=== PATIENT | male | born 1935 | race African-American/Black ===

== ENCOUNTER 2017-01-04 20:51 | Inpatient (IN) | payer OTHER, MEDICARE, BC ==
[2017-01-04] VITALS (7 sets, daily range): BP systolic 162–190; BP diastolic 75–95; PULSE 106–110; RESP 18–25; TEMP 97.8–98.6; O2SAT 95–100
[~2017-01-04] VITALS: Ht 172.7 cm; Wt 61.8 kg
[~2017-01-04 20:51] MED LIST: AMLO5TAB22 PO; BACL10TA PO; CARD240C6 PO; COLC1TAB15 PO; FLUO10TA PO; ISOS10 PO; PROT40TA PO; WARF3TAB PO
[2017-01-04] MEDS ORDERED: SODIUM CHLORIDE 0.9% FLUSH 10 ML FLUSH IVF PRN (21:00)
[2017-01-04] MEDS ORDERED: METO25TA3 PO (21:26)
[2017-01-04] MEDS ORDERED: COLC1TAB15 PO (21:26)
[2017-01-04] MEDS ORDERED: WARF-58 PO (21:26)
[2017-01-04] MEDS ORDERED: LOSA50TA PO (21:26)
[2017-01-04] MEDS ORDERED: CARD240C6 PO (21:26)
[2017-01-04] MEDS ORDERED: VITA10003 PO (21:26)
[2017-01-04] MEDS ORDERED: CALC1CAP PO (21:26)
[2017-01-04] MEDS ORDERED: DONE5TAB7 PO (21:26)
[2017-01-04 21:35] LABS: AUTOMATED NEUTROPHIL # 8.7 TH/MM3 (1.8-7.7); BASOPHIL # 0.1 TH/MM3 (0-0.2); EOSINOPHIL % 0.2 % (0.0-4.0); HEMATOCRIT 34.7 % (39.0-51.0); LYMPH % 5.5 % (9.0-44.0); LYMPHOCYTE # 0.6 TH/MM3 (1.0-4.8); MEAN CELL VOLUME 76.8 FL (80.0-100.0); MEAN CORPUSCULAR HEMOGLOBIN 24.1 PG (27.0-34.0); MEAN CORPUSCULAR HGB CONC 31.4 % (32.0-36.0); MONO % 11.2 % (0.0-8.0); NEUT % 82.1 % (16.0-70.0); PLATELET COUNT 151 TH/MM3 (150-450); RED BLOOD COUNT 4.52 MIL/MM3 (4.50-5.90); RED CELL DISTRIBUTION WIDTH 20.6 % (11.6-17.2); WHITE BLOOD COUNT 10.6 TH/MM3 (4.0-11.0)
[2017-01-04 21:37] LABS: HEMO FLAGS AUTO DIFF
[2017-01-04 21:39] LABS: INTERNATIONAL NORMALIZED RATIO 1.3 RATIO; PROTHROMBIN TIME - PATIENT 14.2 SEC (9.8-11.6)
[2017-01-04 21:42] LABS: BICARBONATE 32.2 MEQ/L (21.0-32.0); POTASSIUM 3.6 MEQ/L (3.5-5.1)
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
[2017-01-04 22:02] LABS: KERATOCYTES 1+ (NORMAL); OVALOCYTES 1+ (NORMAL)
[2017-01-04 22:03] LABS: PLATELET ESTIMATE SMEAR LOW (NORMAL); PLATELET MORPHOLOGY ENLARGED (NORMAL); SCAN/DIFF AUTO DIFF CONFIRMED
[2017-01-04] MEDS ORDERED: MORPHINE SULFATE 4 MG/ML INJ IV PUSH ONE (22:15)
[2017-01-04] MEDS ORDERED: SODIUM CHLOR 0.9% 1000 ML INJ 1,000 ML IV SCH (22:23)
[2017-01-04] MEDS ORDERED: ONDANSETRON HCL 4 MG/2 ML VIAL IV PRN (22:30)
[2017-01-04] MEDS: DOCUSATE SODIUM 100 MG/10 ML UDC PO SCH (22:30)
[2017-01-04] MEDS ORDERED: MORPHINE SULFATE 4 MG/ML INJ IV PRN (22:30)
[2017-01-04] MEDS ORDERED: CHLORHEXIDINE GLUCONATE 2 % 1 PACK (2 CLOTHS) TOP PRN (22:30)
[2017-01-04] MEDS ORDERED: MISCELLANEOUS NURSING INFORMATION XX SCH (22:30)
[2017-01-04] MEDS ORDERED: PANTOPRAZOLE SODIUM 40 MG VIAL IVP SCH (22:30)
[2017-01-04] MEDS: DOCUSATE SODIUM 100 MG CAP PO SCH (22:30)
[2017-01-04] MEDS: ENALAPRILAT 1.25 MG/ML VIAL IV PRN (23:17)
[2017-01-05] VITALS (15 sets, daily range): BP systolic 138–183; BP diastolic 72–93; PULSE 84–108; RESP 15–30; TEMP 97.8–99; O2SAT 94–100
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
--- NOTE | 2017-01-05 04:23 | RADRPT ---
EXAM DATE/TIME: 01/05/2017 03:27 This report includes an Addendum and supersedes previous reports for this exam. [facility] COMPARISON: CHEST SINGLE AP, May 11, 2016, 18:45. INDICATIONS : Short of breath. MEDICAL HISTORY : Unobtainable. SURGICAL HISTORY : Unobtainable. ENCOUNTER: Subsequent ACUITY: 2 days PAIN SCORE: Non-responsive. LOCATION: Bilateral chest FINDINGS: A single view of the chest demonstrates the lungs to be symmetrically aerated without evidence of mas s, infiltrate or effusion. The heart size is mildly enlarged but stable.. Osseous structures are in tact and stable. CONCLUSION: No acute pulmonary infiltrates. Stable cardiomegaly Rigo Remy MD on January 05, 2017 at 4:20 Board Certified Radiologist. This report was verified electronically. ADDENDUM: I was asked to review this study with additional history of the patient being status post left lobect ascencion. There are postsurgical changes in the left perihilar region with multiple clips and neda. The re is volume loss in the left hemithorax with mild mediastinal shift to the left. This is unchanged i n appearance. The heart size is mildly prominent. There are no new confluent infiltrates or effusions . Hazy opacity remains at the left lung base which is unchanged from the prior study. Donny Boykin MD on January 05, 2017 at 10:49 Board Certified Radiologist. This report was verified electronically.
[2017-01-05 04:34] LABS: AUTOMATED NEUTROPHIL # 6.1 TH/MM3 (1.8-7.7); BASOPHIL % 0.4 % (0.0-2.0); EOSINOPHIL # 0.1 TH/MM3 (0-0.4); EOSINOPHIL % 1.3 % (0.0-4.0); HEMATOCRIT 34.1 % (39.0-51.0); LYMPH % 7.9 % (9.0-44.0); LYMPHOCYTE # 0.6 TH/MM3 (1.0-4.8); MEAN CELL VOLUME 77.7 FL (80.0-100.0); MEAN CORPUSCULAR HEMOGLOBIN 24.5 PG (27.0-34.0); MEAN CORPUSCULAR HGB CONC 31.6 % (32.0-36.0); MONO % 12.2 % (0.0-8.0); NEUT % 78.2 % (16.0-70.0); PLATELET COUNT 175 TH/MM3 (150-450); RED BLOOD COUNT 4.39 MIL/MM3 (4.50-5.90); RED CELL DISTRIBUTION WIDTH 21.2 % (11.6-17.2); WHITE BLOOD COUNT 7.8 TH/MM3 (4.0-11.0)
[2017-01-05] MEDS: CHLORHEXIDINE GLUCONATE 2 % 1 PACK (2 CLOTHS) TOP SCH (04:50)
[2017-01-05 04:53] LABS: HEMO FLAGS AUTO DIFF
[2017-01-05 04:55] LABS: POTASSIUM 3.9 MEQ/L (3.5-5.1)
[2017-01-05] MEDS ORDERED: CHLORHEXIDINE GLUCONATE 2 % 1 PACK (2 CLOTHS) TOP PRN (05:15)
[2017-01-05] MEDS ORDERED: MISCELLANEOUS NURSING INFORMATION XX SCH (05:15)
[2017-01-05] MEDS ORDERED: ONDANSETRON HCL 4 MG/2 ML VIAL IV PRN ×2 (05:15→10:30)
[2017-01-05] MEDS ORDERED: ACETAMINOPHEN 325 MG TAB PO PRN ×2 (05:15→10:30)
[2017-01-05] MEDS ORDERED: SENNOSIDES 8.6 MG TAB PO PRN (05:15)
[2017-01-05] MEDS ORDERED: RESP: ALBUTEROL 2.5 MG/IPRATROPIUM 0.5 MG NEB (PRN) INH (05:15)
[2017-01-05 05:32] LABS: MAGNESIUM 2.4 MG/DL (1.5-2.5)
[2017-01-05 07:29] LABS: BASOPHILS 1 % (0-2); CORRECTED NUCLEATED RBC 1 /100 WBC (0-0); EOSINOPHILS 1 % (0-4); NEUTROPHIL # MANUAL DIFF 6.3 TH/MM3 (1.8-7.7); POLYS (SEG NEUTROPHILS) 81 % (16-70); WBC DIFF SAMPLE 100
[2017-01-05 07:30] LABS: OVALOCYTES 1+ (NORMAL)
[2017-01-05 07:33] LABS: PLATELET ESTIMATE SMEAR NORMAL (NORMAL); PLATELET MORPHOLOGY NORMAL (NORMAL); SCAN/DIFF FINAL DIFF MANUAL
[2017-01-05] MEDS: LOSARTAN 50 MG TAB PO SCH (08:04)
[2017-01-05] MEDS: SODIUM CHLORIDE 0.9% FLUSH 10 ML FLUSH IV FLUSH PRN (08:04)
[2017-01-05] MEDS: METOPROLOL TARTRATE 25 MG TAB PO SCH ×2 (08:04→20:10)
[2017-01-05] MEDS: DOCUSATE SODIUM 100 MG CAP PO SCH (08:04)
[2017-01-05] MEDS: PANTOPRAZOLE SOD 40 MG DELAYED RELEASE TAB PO SCH (08:04)
[2017-01-05] MEDS: DILTIAZEM-CD 240 MG CAP ER PO SCH (08:04)
[2017-01-05] MEDS: DOCUSATE SODIUM 100 MG/10 ML UDC PO SCH (08:34)
[2017-01-05] MEDS ORDERED: DOCUSATE SODIUM 100 MG CAP PO SCH (09:00)
[2017-01-05] MEDS: POLYETHYLENE GLYCOL 17 GM PKG PO SCH (09:55)
[2017-01-05] MEDS: ACETAMINOPHEN/HYDROcodone 325 MG/5 MG TAB PO PRN ×2 (09:55→22:16)
[2017-01-05] MEDS: DOCUSATE SODIUM 50 MG/SENNA 8.6 MG TAB PO SCH ×2 (09:55→20:10)
[2017-01-05] MEDS ORDERED: SODIUM CHLOR 0.9% 1000 ML INJ 1,000 ML IV PRN ×3 (10:16)
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
[2017-01-05] MEDS ORDERED: cloNIDine HCL 0.1 MG TAB PO PRN (10:30)
[2017-01-05] MEDS ORDERED: MANNITOL 12.5 GM/50 ML VIAL IV PRN (10:30)
[2017-01-05] MEDS ORDERED: GENTAMICIN SULFATE (DIALYSIS USE ONLY) 20 MG/2 ML VIAL IV PRN (10:30)
[2017-01-05] MEDS ORDERED: diphenhydrAMINE HCL 25 MG CAP PO PRN (10:30)
[2017-01-05] MEDS ORDERED: NITROGLYCERIN 0.4 MG SL 25 TABS/BTL SL PRN (10:30)
[2017-01-05] MEDS ORDERED: HEPARIN SODIUM - IV 10,000 UNITS/10 ML VIAL PRN (10:30)
[2017-01-05] MEDS ORDERED: HEPARIN SODIUM - IV 10,000 UNITS/10 ML VIAL IVF PRN (10:30)
[2017-01-05] MEDS ORDERED: SODIUM CHLORIDE 0.9% FLUSH 10 ML FLUSH IV FLUSH PRN (10:30)
[2017-01-05] MEDS ORDERED: ALBUMIN HUMAN 25% 25 GM/100 ML BAGP IV PRN (10:30)
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
[2017-01-05] MEDS ORDERED: RESP: ALBUTEROL 2.5 MG/IPRATROPIUM 0.5 MG NEB (PRN) NEB (11:00)
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
[2017-01-05] MEDS: GELATIN 12 MM/7 MM FOAM TOP PRN (12:28)
[2017-01-05] MEDS: CALCIUM ACETATE 667 MG CAP PO SCH ×2 (14:16→17:58)
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
--- NOTE | 2017-01-05 17:37 | EKG ---
Date Performed: 01/04/2017 Time Performed: 20:51:00 PTAGE: 81 years EKG: ATRIAL FIBRILLATION WITH RAPID VENTRICULAR RESPONSE BORDERLINE LEFT AXIS DEVIATION VOLTAGE CRITERIA FOR LVH NONSPECIFIC ST & T-WAVE ABNORMALITY Compared to prior study of 05/11/2016, atrial fib rillation with RVR has replaced Sinus rhythm . ABNORMAL ECG NO PREVIOUS TRACING DOCTOR: Ethan Mercado Interpretating Date/Time 01/05/2017 17:37:22
[2017-01-05] MEDS ORDERED: SERO200T PO (17:55)
[2017-01-05] MEDS: ENALAPRILAT 1.25 MG/ML VIAL IV PRN (18:43)
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
[2017-01-06] VITALS (10 sets, daily range): BP systolic 142–178; BP diastolic 81–91; PULSE 88–107; RESP 18–23; TEMP 97.6–99; O2SAT 91–100
[2017-01-06] MEDS ORDERED: CHLORHEXIDINE GLUCONATE 2 % 1 PACK (2 CLOTHS) TOP SCH (04:00)
[2017-01-06] MEDS: CHLORHEXIDINE GLUCONATE 2 % 1 PACK (2 CLOTHS) TOP SCH (04:00)
[2017-01-06] MEDS: ACETAMINOPHEN/HYDROcodone 325 MG/5 MG TAB PO PRN ×2 (04:30→16:14)
[2017-01-06 05:14] LABS: HEMATOCRIT 36.8 % (39.0-51.0); MEAN CELL VOLUME 77.3 FL (80.0-100.0); MEAN CORPUSCULAR HEMOGLOBIN 23.7 PG (27.0-34.0); MEAN CORPUSCULAR HGB CONC 30.7 % (32.0-36.0); PLATELET COUNT 136 TH/MM3 (150-450); RED BLOOD COUNT 4.75 MIL/MM3 (4.50-5.90); RED CELL DISTRIBUTION WIDTH 20.9 % (11.6-17.2); WHITE BLOOD COUNT 9.3 TH/MM3 (4.0-11.0)
[2017-01-06 05:16] LABS: REVIEW FLAG FINAL
[2017-01-06 05:22] LABS: INTERNATIONAL NORMALIZED RATIO 1.2 RATIO; PROTHROMBIN TIME - PATIENT 12.9 SEC (9.8-11.6)
[2017-01-06 05:30] LABS: BICARBONATE 30.9 MEQ/L (21.0-32.0); MAGNESIUM 2.2 MG/DL (1.5-2.5); POTASSIUM 4.2 MEQ/L (3.5-5.1)
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
[2017-01-06] MEDS: LOSARTAN 50 MG TAB PO SCH (10:27)
[2017-01-06] MEDS: CALCIUM ACETATE 667 MG CAP PO SCH ×3 (10:27→18:34)
[2017-01-06] MEDS: POLYETHYLENE GLYCOL 17 GM PKG PO SCH (10:27)
[2017-01-06] MEDS: DILTIAZEM-CD 240 MG CAP ER PO SCH (10:28)
[2017-01-06] MEDS: PANTOPRAZOLE SOD 40 MG DELAYED RELEASE TAB PO SCH (10:28)
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
[2017-01-06] MEDS: DONEPEZIL HCL 5 MG TAB PO SCH (10:33)
[2017-01-06] MEDS: METOPROLOL TARTRATE 25 MG TAB PO SCH ×2 (10:33→20:55)
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
[2017-01-06] MEDS: DOCUSATE SODIUM 50 MG/SENNA 8.6 MG TAB PO SCH ×2 (14:30→20:55)
[2017-01-07] VITALS (7 sets, daily range): BP systolic 121–163; BP diastolic 68–86; PULSE 70–94; RESP 18–20; TEMP 96–98.2; O2SAT 92–95
[2017-01-07] MEDS ORDERED: MILKSUS PO (07:57)
[2017-01-07] MEDS ORDERED: SENN1TAB PO (07:57)
[2017-01-07] MEDS: DILTIAZEM-CD 240 MG CAP ER PO SCH (08:44)
[2017-01-07] MEDS: CALCIUM ACETATE 667 MG CAP PO SCH ×3 (08:45→17:32)
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
[2017-01-07] MEDS: LOSARTAN 50 MG TAB PO SCH (14:07)
[2017-01-07] MEDS: DOCUSATE SODIUM 50 MG/SENNA 8.6 MG TAB PO SCH ×2 (14:07→21:20)
[2017-01-07] MEDS: DONEPEZIL HCL 5 MG TAB PO SCH (14:07)
[2017-01-07] MEDS: METOPROLOL TARTRATE 25 MG TAB PO SCH ×2 (14:07→21:20)
[2017-01-07] MEDS: POLYETHYLENE GLYCOL 17 GM PKG PO SCH (14:07)
[2017-01-07] MEDS: PANTOPRAZOLE SOD 40 MG DELAYED RELEASE TAB PO SCH (14:08)
--- NOTE | 2017-01-07 17:07 | HHI.PR ---
Subjective Remarks Pt nods yes and says "unhun" to everything I ask, when I asks him if he has pain , he nods yes, if he is nauseous, nods yes, if he ate dinner (clearly he hasn't touched any of his food) and nods yes Objective Vitals Vital Signs Date Time Temp Pulse Resp B/P Pulse Ox O2 Delivery O2 Flow Rate FiO2 01/07/17 16:33 97.0 87 18 142/68 94 01/07/17 13:00 96.0 73 18 140/79 94 01/07/17 08:22 98.2 70 18 163/73 95 01/07/17 08:00 94 01/07/17 04:00 96.3 80 20 154/74 92 01/07/17 00:00 96.5 85 18 121/81 92 01/06/17 22:54 88 01/06/17 20:00 98.2 99 18 163/83 93 01/06/17 17:45 98.2 91 22 177/88 94 I/O 01/06/17 01/06/17 01/06/17 01/07/17 01/07/17 01/07/17 07:00 15:00 23:00 07:00 15:00 23:00 Intake Total 160 ml 356 ml 0 ml 60 ml Output Total 0 ml 0 ml 3000 ml Balance 160 ml 356 ml 0 ml 60 ml -3000 ml Intake Oral 160 ml 356 ml 0 ml 60 ml IV Total 0 ml 0 ml Output Urine Total 0 ml 0 ml Hemodialysis 3000 ml # Voids 0 0 # Bowel Movements 0 0 0 0 Result Diagram: 01/06/17 0450 01/06/17 0450 Imaging Last Impressions Chest X-Ray 01/05/17 0000 Signed Impressions: Service Date/Time: December 03:27 - CONCLUSION: No acute pulmonary infiltrates. Stable cardiomegaly Rigo Remy MD ADDENDUM: I was asked to review this study with additional history of the patient being status post left lobectomy. There are postsurgical changes in the left perihilar region with multiple clips and neda. There is volume loss in the left hemithorax with mild mediastinal shift to the left. This is unchanged in appearance. The heart size is mildly prominent. There are no new confluent infiltrates or effusions. Hazy opacity remains at the left lung base which is unchanged from the prior study. Donny Boykin MD Head CT 01/04/172052 Signed Impressions: Service Date/Time: Wednesday, January 04, 2017 21:37 - CONCLUSION: 1. Small subarachnoid blood and scattered faint bilateral cerebral parenchymal contusions as above. No mass effect or midline shift. 2. Left frontal scalp contusion. 3. Fluid in the left mastoid air cells but similar findings seen last April. Macario Benjamin MD Objective Remarks GENERAL: Elderly appearing male, confused, alert to self only protecting his airway currently on 2 L nasal cannula CARDIOVASCULAR: Normal rate, irregularly irregular rhythm. RESPIRATORY: No accessory muscle use. Clear to auscultation. Breath sounds equal bilaterally. GASTROINTESTINAL: Abdomen soft, non-tender, nondistended. No guarding. MUSCULOSKELETAL: Extremities without edema. No obvious deformities. NEUROLOGICAL: Awake, confused, alert to self only. No gross focal/sensory deficits. Follows commands in all 4 extremities. A/P Assessment and Plan Neurologic: Subarachnoid hemorrhage with small parenchymal contusions Pain Bipolar disorder Left frontal scalp contusion Neurosurgery consulted- Dr. Wu-follow up recommendations, for now continue to monitor neuro exams 01/04 CT brain-small subarachnoid bleed, bilateral cerebral parenchymal contusions. No midline shift. Left frontal scalp contusion. 01/04 CT brain ([place]) subarachnoid hemorrhage of left sylvian fissure, mild sulcal subarachnoid hemorrhage within left parietal lobe 01/04 CT cervical spine ([place]) marked degenerative changes with spinal stenosis and neural for renal narrowing, appears stable. 01/04 CT lumbar ([place]) spinal stenosis with neural foraminal narrowing T9- T10 secondary to degenerative changes. patient alert to self only, confusion unsure of baseline mental status . Per records, Daughter, patient has baseline confusion at home, she feels may be Alzheimer's. Tylenol 650 mg every 6 hours , [place] when necessary for pain, discontinue morphine. Anterior mediastinal mass History of lung cancer-S/P lobectomy 01/04 CT chest([place]) stable anterior mediastinal mass 01/05 stable cardiomegaly Maintain O2 sat greater than 92%, noted O2 sat 97% on room air, nasal cannula discontinued Maintain head of bed greater than 30 Bronchodilators when necessary Cardiomegaly Atrial fibrillation Peripheral vascular disease Hypertension Continue home antihypertensive meds-Cardizem 240 CD, losartan 50 mg/day, metoprolol 25 mg twice a day, and Vasotec Maintain MAP > 65mmHg Previously on Coumadin 3 mg or A. fib on hold secondary to SAH , provided FFP and vitamin K for reversal on 01/04 Initial troponin 0.03 Multiple stents bilateral lower extremities (reported by family) End-stage renal disease Bilateral renal cysts BPH Nephrology following-continue IHD, previously on Monday schedule Left arm existing AV graft -- Strict I/Os FEN/GI: Hiatal hernia (sliding) Diverticulosis Hepatomegaly H/O Hepatitis (per medical record) Hypophosphatemia Hypocalcemia Maintain NPO except meds Continue calcium acetate (home med) Monitor BMP Zofran for nausea Bowel regimen 01/04 CT abdomen ([place]) cardiomegaly, sliding type hiatal hernia, hepatomegaly consistent with hepatocellular disease. Biliary harmatoma. Bilateral renal parenchymal cysts. Diverticula scattered. Marked prostate gland enlargement. Bladder wall thickening consistent with outflow obstructive changes. Small numerous bladder calculi. 11 mm splenic nodule, may be a harmatoma Anemia of chronic disease Monitor CBC Recent right foot 4th toe amputation Osteoarthritis-T and L-spine Consult podiatry-sutures in situ 4th digit right foot-Dr. Chirinos. Per podiatry , sutures to be removed at next visit, off-load pressure while in bed w pillow blood flow studies of right lower extremity pending. PT/OT evaluate and treat Prophylaxis: GI Prophylaxis Protonix DVT Prophylaxis -- SCDs No pharmacological prophylaxis in the setting of SAH Discharge Planning per primary team Urmila Molina MD Jan 07, 2017 17:07
[2017-01-07] MEDS: ACETAMINOPHEN/HYDROcodone 325 MG/5 MG TAB PO PRN (17:34)
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
--- NOTE | 2017-01-07 21:18 | RADRPT ---
EXAM DATE/TIME: 01/07/2017 20:53 [place] COMPARISON: No previous studies available for comparison. INDICATIONS : Right foot pain. MEDICAL HISTORY : Unobtainable. SURGICAL HISTORY : Unobtainable. ENCOUNTER: Subsequent ACUITY: 1 day PAIN SCORE: 3/10 LOCATION: Right foot. FINDINGS: No definite fractures, or dislocations are identified. No definite lytic or sclerotic lesion is seen . Slight osteopenia is seen. Chronic atherosclerotic calcifications are seen involving the visualize d arteries. CONCLUSION: Slight osteopenia. Jeanette Padron MD on January 07, 2017 at 21:15 Board Certified Radiologist. This report was verified electronically.
[2017-01-07] MEDS: MAGNESIUM HYDROXIDE SUSP 30 ML CUP PO SCH (21:21)
[2017-01-08] VITALS: BP 167/88; PULSE 83; RESP 20; TEMP 96.9; O2SAT 96
[2017-01-08 04:00] VITALS: BP 140/68; PULSE 71; RESP 20; TEMP 96.3; O2SAT 96
[2017-01-08 07:47] VITALS: BP 149/81; PULSE 89; RESP 18; TEMP 97.8; O2SAT 93
[2017-01-08 08:07] LABS: POTASSIUM 4.3 MEQ/L (3.5-5.1)
[2017-01-08] MEDS: DILTIAZEM-CD 240 MG CAP ER PO SCH (09:03)
[2017-01-08] MEDS: LACTULOSE SYRUP 20 GM/30 ML CUP PO SCH (09:03)
[2017-01-08] MEDS: POLYETHYLENE GLYCOL 17 GM PKG PO SCH (09:03)
[2017-01-08] MEDS: SODIUM CHLORIDE 0.9% FLUSH 10 ML FLUSH IV FLUSH PRN (09:03)
[2017-01-08] MEDS: DOCUSATE SODIUM 50 MG/SENNA 8.6 MG TAB PO SCH ×2 (09:03→20:32)
[2017-01-08] MEDS: METOPROLOL TARTRATE 25 MG TAB PO SCH ×2 (09:03→20:32)
[2017-01-08] MEDS: CALCIUM ACETATE 667 MG CAP PO SCH ×3 (09:03→17:55)
[2017-01-08] MEDS: LOSARTAN 50 MG TAB PO SCH (09:03)
[2017-01-08] MEDS: PANTOPRAZOLE SOD 40 MG DELAYED RELEASE TAB PO SCH (09:03)
[2017-01-08] MEDS: DONEPEZIL HCL 5 MG TAB PO SCH (09:03)
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
[2017-01-08 12:16] VITALS: BP 161/89; PULSE 80; RESP 18; TEMP 95.9; O2SAT 95
[2017-01-08] MEDS: ACETAMINOPHEN/HYDROcodone 325 MG/5 MG TAB PO PRN (12:34)
[2017-01-08] MEDS ORDERED: ACET325T PO (12:56)
--- NOTE | 2017-01-08 15:27 | HHI.PR ---
Subjective Remarks Pt says yes when asks if he has pain, he points to lower chest and belly. Pt does answer yes to many of my questions so unsure if he understands what I'm asking him discussed w RN, pt keep taking tele off. Objective Vitals Vital Signs Date Time Temp Pulse Resp B/P Pulse Ox O2 Delivery O2 Flow Rate FiO2 01/08/17 12:16 95.9 80 18 161/89 95 01/08/17 07:47 97.8 89 18 149/81 93 01/08/17 04:00 96.3 71 20 140/68 96 01/08/17 00:00 96.9 83 20 167/88 96 01/07/17 20:00 87 01/07/17 20:00 97.5 90 20 154/86 95 01/07/17 16:33 97.0 87 18 142/68 94 I/O 01/07/17 01/07/17 01/07/17 01/08/17 01/08/17 01/08/17 07:00 15:00 23:00 07:00 15:00 23:00 Intake Total 60 ml 60 ml 480 ml Output Total 3000 ml Balance 60 ml -3000 ml 60 ml 480 ml Intake Oral 60 ml 60 ml 480 ml Hemodialysis 3000 ml # Voids 0 0 2 # Bowel Movements 0 0 2 Result Diagram: 01/06/17 0450 01/08/17 0625 Imaging Last Impressions Foot X-Ray 01/07/17 0000 Signed Impressions: Service Date/Time: Saturday, January 07, 2017 20:53 - CONCLUSION: Slight osteopenia. KEligio Padron MD Chest X-Ray 01/05/17 0000 Signed Impressions: Service Date/Time: December 03:27 - CONCLUSION: No acute pulmonary infiltrates. Stable cardiomegaly Rigo Remy MD ADDENDUM: I was asked to review this study with additional history of the patient being status post left lobectomy. There are postsurgical changes in the left perihilar region with multiple clips and neda. There is volume loss in the left hemithorax with mild mediastinal shift to the left. This is unchanged in appearance. The heart size is mildly prominent. There are no new confluent infiltrates or effusions. Hazy opacity remains at the left lung base which is unchanged from the prior study. Donny Boykin MD Head CT 01/04/172052 Signed Impressions: Service Date/Time: Wednesday, January 04, 2017 21:37 - CONCLUSION: 1. Small subarachnoid blood and scattered faint bilateral cerebral parenchymal contusions as above. No mass effect or midline shift. 2. Left frontal scalp contusion. 3. Fluid in the left mastoid air cells but similar findings seen last April. Macario Benjamin MD Objective Remarks GENERAL: Elderly appearing male, confused, alert to self CARDIOVASCULAR: Normal rate, irregularly irregular rhythm. reproducible pain on the right lower chest RESPIRATORY: No accessory muscle use. Clear to auscultation. Breath sounds equal bilaterally. GASTROINTESTINAL: Abdomen soft, grimaces when I palpate the epigastric region, nondistended. No guarding. MUSCULOSKELETAL: Extremities without edema. No obvious deformities. NEUROLOGICAL: Awake, confused, alert to self only. No gross focal/sensory deficits. Follows commands in all 4 extremities. A/P Assessment and Plan Neurologic: Subarachnoid hemorrhage with small parenchymal contusions Pain Bipolar disorder Left frontal scalp contusion Neurosurgery consulted- Dr. Wu-follow up recommendations, for now continue to monitor neuro exams 01/04 CT brain-small subarachnoid bleed, bilateral cerebral parenchymal contusions. No midline shift. Left frontal scalp contusion. 01/04 CT brain ([place]) subarachnoid hemorrhage of left sylvian fissure, mild sulcal subarachnoid hemorrhage within left parietal lobe 01/04 CT cervical spine ([place]) marked degenerative changes with spinal stenosis and neural for renal narrowing, appears stable. 01/04 CT lumbar ([place]) spinal stenosis with neural foraminal narrowing T9- T10 secondary to degenerative changes. patient alert to self only, confusion unsure of baseline mental status . Per records, Daughter, patient has baseline confusion at home, she feels may be Alzheimer's. Tylenol 650 mg every 6 hours , [place] when necessary for pain, discontinue morphine. Anterior mediastinal mass History of lung cancer-S/P lobectomy 01/04 CT chest([place]) stable anterior mediastinal mass 01/05 stable cardiomegaly Maintain O2 sat greater than 92%, noted O2 sat 97% on room air, nasal cannula discontinued Maintain head of bed greater than 30 Bronchodilators when necessary Cardiomegaly Atrial fibrillation Peripheral vascular disease Hypertension Continue home antihypertensive meds-Cardizem 240 CD, losartan 50 mg/day, metoprolol 25 mg twice a day, and Vasotec Maintain MAP > 65mmHg Previously on Coumadin 3 mg or A. fib on hold secondary to SAH , provided FFP and vitamin K for reversal on 01/04 Initial troponin 0.03 Multiple stents bilateral lower extremities (reported by family). d/c TELE End-stage renal disease Bilateral renal cysts BPH Nephrology following-continue IHD, previously on Monday schedule Left arm existing AV graft -- Strict I/Os FEN/GI: Hiatal hernia (sliding) Diverticulosis Hepatomegaly H/O Hepatitis (per medical record) Hypophosphatemia Hypocalcemia Maintain NPO except meds Continue calcium acetate (home med) Monitor BMP Zofran for nausea Bowel regimen 01/04 CT abdomen ([place]) cardiomegaly, sliding type hiatal hernia, hepatomegaly consistent with hepatocellular disease. Biliary harmatoma. Bilateral renal parenchymal cysts. Diverticula scattered. Marked prostate gland enlargement. Bladder wall thickening consistent with outflow obstructive changes. Small numerous bladder calculi. 11 mm splenic nodule, may be a harmatoma Anemia of chronic disease Monitor CBC Recent right foot 4th toe amputation Osteoarthritis-T and L-spine Consult podiatry-sutures in situ 4th digit right foot-Dr. Chirinos. Per podiatry , sutures to be removed at next visit, off-load pressure while in bed w pillow blood flow studies of right lower extremity pending. PT/OT evaluate and treat Prophylaxis: GI Prophylaxis Protonix DVT Prophylaxis -- SCDs No pharmacological prophylaxis in the setting of SAH Discharge Planning per primary team Urmila Molina MD Jan 08, 2017 15:27
[2017-01-08 16:30] VITALS: BP 152/87; PULSE 77; RESP 17; TEMP 95.7; O2SAT 94
[2017-01-08 20:00] VITALS: BP 143/77; PULSE 88; RESP 18; TEMP 95.7; O2SAT 94
[2017-01-08] MEDS: MAGNESIUM HYDROXIDE SUSP 30 ML CUP PO SCH (20:32)
[2017-01-09] VITALS: BP 156/69; PULSE 67; RESP 18; TEMP 95.6; O2SAT 94
[2017-01-09 04:00] VITALS: BP 167/79; PULSE 50; RESP 18; TEMP 97.4; O2SAT 95
[2017-01-09 07:32] LABS: AUTOMATED NEUTROPHIL # 6.4 TH/MM3 (1.8-7.7); BASOPHIL % 0.3 % (0.0-2.0); EOSINOPHIL # 0.5 TH/MM3 (0-0.4); EOSINOPHIL % 4.9 % (0.0-4.0); HEMATOCRIT 37.3 % (39.0-51.0); LYMPH % 14.5 % (9.0-44.0); LYMPHOCYTE # 1.4 TH/MM3 (1.0-4.8); MEAN CELL VOLUME 76.1 FL (80.0-100.0); MEAN CORPUSCULAR HEMOGLOBIN 24.5 PG (27.0-34.0); MEAN CORPUSCULAR HGB CONC 32.2 % (32.0-36.0); MONO % 12.3 % (0.0-8.0); PLATELET COUNT 190 TH/MM3 (150-450); RED CELL DISTRIBUTION WIDTH 20.8 % (11.6-17.2); WHITE BLOOD COUNT 9.4 TH/MM3 (4.0-11.0)
[2017-01-09 07:33] LABS: HEMO FLAGS AUTO DIFF
[2017-01-09 07:37] LABS: ALKALINE PHOSPHATASE 130 U/L (45-117); ALT (GPT) 29 U/L (12-78); ANION GAP 13 MEQ/L (5-15); AST (GOT) 60 U/L (15-37); BICARBONATE 29.7 MEQ/L (21.0-32.0); CHLORIDE 91 MEQ/L (98-107); GLOMERULAR FILTRATION RATE 7 ML/MIN (>89); MAGNESIUM 3.3 MG/DL (1.5-2.5); SODIUM (NA) 134 MEQ/L (136-145); TOTAL BILIRUBIN ADULT 0.6 MG/DL (0.2-1.0)
[2017-01-09 07:38] LABS: BLOOD UREA NITROGEN 62 MG/DL (7-18)
[2017-01-09 07:42] LABS: POTASSIUM 6.6 MEQ/L (3.5-5.1)
[2017-01-09] MEDS: METOPROLOL TARTRATE 25 MG TAB PO SCH ×2 (08:00→21:34)
[2017-01-09] MEDS: LOSARTAN 50 MG TAB PO SCH (08:00)
[2017-01-09] MEDS: POLYETHYLENE GLYCOL 17 GM PKG PO SCH (08:00)
[2017-01-09] MEDS: LACTULOSE SYRUP 20 GM/30 ML CUP PO SCH (08:00)
[2017-01-09] MEDS: PANTOPRAZOLE SOD 40 MG DELAYED RELEASE TAB PO SCH (08:00)
[2017-01-09] MEDS: DOCUSATE SODIUM 50 MG/SENNA 8.6 MG TAB PO SCH ×2 (08:00→21:34)
[2017-01-09] MEDS: CALCIUM ACETATE 667 MG CAP PO SCH ×3 (08:00→18:00)
[2017-01-09] MEDS: DONEPEZIL HCL 5 MG TAB PO SCH (08:00)
[2017-01-09] MEDS: DILTIAZEM-CD 240 MG CAP ER PO SCH (08:00)
[2017-01-09 08:15] LABS: ACANTHOCYTES OCC (NORMAL); OVALOCYTES 1+ (NORMAL)
[2017-01-09 08:16] LABS: SCAN/DIFF AUTO DIFF CONFIRMED
[2017-01-09 08:27] VITALS: BP 172/81; PULSE 56; RESP 18; TEMP 96.5; O2SAT 98
[2017-01-09] MEDS ORDERED: DEXTROSE 50% IN WATER 50 ML SYRINGE IV ONE (09:00)
[2017-01-09] MEDS ORDERED: INSULIN HUMAN REGULAR 1,000 UNITS/10 ML VIAL IV PUSH ONE (09:00)
[2017-01-09] MEDS ORDERED: SODIUM BICARBONATE 8.4% INJ 50 MEQ/50 ML SYR IV PUSH ONE (09:00)
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
[2017-01-09] MEDS ORDERED: HYDR-3516 PO (11:33)
[2017-01-09 13:37] VITALS: BP 159/69; PULSE 73; RESP 20; TEMP 97.4; O2SAT 98
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
[2017-01-09 17:39] LABS: BICARBONATE 31.9 MEQ/L (21.0-32.0); POTASSIUM 4.1 MEQ/L (3.5-5.1)
[2017-01-09 20:00] VITALS: BP 160/74; PULSE 68; RESP 18; TEMP 96.7; O2SAT 96
[2017-01-09] MEDS: MAGNESIUM HYDROXIDE SUSP 30 ML CUP PO SCH (21:34)
[2017-01-10] VITALS: BP 153/72; PULSE 62; RESP 20; TEMP 97.4; O2SAT 97
[2017-01-10 04:00] VITALS: BP 171/77; PULSE 58; RESP 20; TEMP 95.8; O2SAT 94
[2017-01-10 07:37] LABS: BICARBONATE 35.3 MEQ/L (21.0-32.0); POTASSIUM 4.7 MEQ/L (3.5-5.1)
[2017-01-10 08:23] VITALS: BP 138/74; PULSE 60; RESP 20; TEMP 98.1; O2SAT 96
[2017-01-10] MEDS: ACETAMINOPHEN/HYDROcodone 325 MG/5 MG TAB PO PRN (08:53)
[2017-01-10] MEDS: LACTULOSE SYRUP 20 GM/30 ML CUP PO SCH (08:53)
[2017-01-10] MEDS: POLYETHYLENE GLYCOL 17 GM PKG PO SCH (08:54)
[2017-01-10] MEDS: CALCIUM ACETATE 667 MG CAP PO SCH (08:54)
[2017-01-10] MEDS: DILTIAZEM-CD 240 MG CAP ER PO SCH (08:54)
[2017-01-10] MEDS: DONEPEZIL HCL 5 MG TAB PO SCH (08:54)
[2017-01-10] MEDS: LOSARTAN 50 MG TAB PO SCH (08:54)
[2017-01-10] MEDS: DOCUSATE SODIUM 50 MG/SENNA 8.6 MG TAB PO SCH ×2 (08:54→21:50)
[2017-01-10] MEDS: PANTOPRAZOLE SOD 40 MG DELAYED RELEASE TAB PO SCH (08:54)
[2017-01-10] MEDS: METOPROLOL TARTRATE 25 MG TAB PO SCH ×2 (08:54→21:55)
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
[2017-01-10] MEDS: SEVELAMER CARBONATE 800 MG TAB PO SCH ×2 (11:10→16:36)
[2017-01-10] MEDS: GELATIN 12 MM/7 MM FOAM TOP PRN (12:36)
[2017-01-10 16:40] VITALS: BP 136/76; PULSE 68; RESP 20; TEMP 97.6; O2SAT 96
[2017-01-10 20:16] VITALS: BP 135/65; PULSE 56; RESP 17; TEMP 97.2; O2SAT 100
[2017-01-10] MEDS: MAGNESIUM HYDROXIDE SUSP 30 ML CUP PO SCH (21:50)
[2017-01-11 00:45] VITALS: BP 152/75; PULSE 59; RESP 16; TEMP 97.2; O2SAT 100
[2017-01-11 05:09] VITALS: BP 133/60; PULSE 66; RESP 16; TEMP 97.2; O2SAT 95
[2017-01-11 08:00] VITALS: BP 158/74; PULSE 63; RESP 20; TEMP 98.1; O2SAT 96
[2017-01-11 08:32] LABS: BASOPHIL # 0.1 TH/MM3 (0-0.2); BASOPHIL % 0.9 % (0.0-2.0); EOSINOPHIL # 0.1 TH/MM3 (0-0.4); EOSINOPHIL % 1.7 % (0.0-4.0); HEMATOCRIT 36.6 % (39.0-51.0); LYMPH % 14.6 % (9.0-44.0); LYMPHOCYTE # 1.2 TH/MM3 (1.0-4.8); MEAN CORPUSCULAR HEMOGLOBIN 24.5 PG (27.0-34.0); MEAN CORPUSCULAR HGB CONC 31.8 % (32.0-36.0); MONO % 12.2 % (0.0-8.0); NEUT % 70.6 % (16.0-70.0); PLATELET COUNT 204 TH/MM3 (150-450); RED BLOOD COUNT 4.75 MIL/MM3 (4.50-5.90); RED CELL DISTRIBUTION WIDTH 20.3 % (11.6-17.2); WHITE BLOOD COUNT 8.5 TH/MM3 (4.0-11.0)
[2017-01-11 08:33] LABS: HEMO FLAGS AUTO DIFF
[2017-01-11 08:46] LABS: ALT (GPT) 25 U/L (12-78); ANION GAP 13 MEQ/L (5-15); AST (GOT) 25 U/L (15-37); BICARBONATE 29.2 MEQ/L (21.0-32.0); BLOOD UREA NITROGEN 37 MG/DL (7-18); CHLORIDE 93 MEQ/L (98-107); GLOMERULAR FILTRATION RATE 10 ML/MIN (>89); POTASSIUM 4.5 MEQ/L (3.5-5.1); SODIUM (NA) 135 MEQ/L (136-145)
[2017-01-11] MEDS: DOCUSATE SODIUM 50 MG/SENNA 8.6 MG TAB PO SCH (09:00)
[2017-01-11 09:05] LABS: ALKALINE PHOSPHATASE 135 U/L (45-117); TOTAL BILIRUBIN ADULT 0.7 MG/DL (0.2-1.0)
[2017-01-11] MEDS: SEVELAMER CARBONATE 800 MG TAB PO SCH (09:05)
[2017-01-11] MEDS: DILTIAZEM-CD 240 MG CAP ER PO SCH (09:06)
[2017-01-11] MEDS: LOSARTAN 50 MG TAB PO SCH (09:06)
[2017-01-11] MEDS: DONEPEZIL HCL 5 MG TAB PO SCH (09:06)
[2017-01-11] MEDS: PANTOPRAZOLE SOD 40 MG DELAYED RELEASE TAB PO SCH (09:06)
[2017-01-11 09:07] LABS: KERATOCYTES OCC (NORMAL); OVALOCYTES 1+ (NORMAL); SCAN/DIFF AUTO DIFF CONFIRMED
[2017-01-11] MEDS: LACTULOSE SYRUP 20 GM/30 ML CUP PO SCH (09:07)
[2017-01-11] MEDS: METOPROLOL TARTRATE 25 MG TAB PO SCH (09:07)
[2017-01-11] MEDS: POLYETHYLENE GLYCOL 17 GM PKG PO SCH (09:07)
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
[2017-01-18] MEDS ORDERED: WHEEMIS3 (11:19)
[2017-01-18] MEDS ORDERED: GETGO ROLLING W1 MI1 (11:19)
[2017-01-20] MEDS ORDERED: HYDR-3516 PO (09:27)
[2017-01-20] MEDS ORDERED: LOSA50TA PO (12:41)
[2017-01-20] MEDS ORDERED: CARD240C6 PO (12:41)
[2017-01-20] MEDS ORDERED: MILKSUS PO (12:41)
[2017-01-20] MEDS ORDERED: DONE5TAB7 PO (12:41)
[2017-01-20] MEDS ORDERED: SENN1TAB PO (12:41)
[2017-01-20] MEDS ORDERED: ACET325T PO (12:41)
[2017-01-20] MEDS ORDERED: PANT40TA3 PO (12:41)
[2017-01-20] MEDS ORDERED: WARF4TAB51 PO (12:41)
[2017-01-20] MEDS ORDERED: METO25TA3 PO (12:41)
[2017-01-20] MEDS ORDERED: CALC1CAP PO (12:41)
== END 2017-01-11 11:31 | DRG 85 ==
LOC: NEPE 20:51 → NEDA 21:11 → N03A 22:52 → N05A 01-06 18:01
PROVIDERS: ADMIT Surgery; ATTEND Surgery
PROC: 5A1D60Z (ICD-10-PCS; principal; 2017-01-05)
DX: S06.6X0A Traumatic subarachnoid hemorrhage without loss of consciousness, initial encounter (principal); N18.6 End stage renal disease; I48.91 Unspecified atrial fibrillation; I12.0 Hypertensive chronic kidney disease with stage 5 chronic kidney disease or end stage renal disease; S00.03XA Contusion of scalp, initial encounter; R40.2412 Glasgow coma scale score 13-15, at arrival to emergency department; V43.52XA Car driver injured in collision with other type car in traffic accident, initial encounter; Z79.01 Long term (current) use of anticoagulants; Z99.2 Dependence on renal dialysis; M10.9 Gout, unspecified
CPT/HCPCS: 70450; 71010; 73630; 76937; 80048; 80053; 83735; 84100; 84484; 85007; 85025; 85027; 85610; 87641; 90935; 93005; 94150; C9113; J2270; J2405; J7030